=== PATIENT | female | born 1990 | race Two or more races ===

== ENCOUNTER 2018-02-08 23:44 | Inpatient (IN) | payer OTHER ==
[~2018-02-08] VITALS: Ht 162.6 cm; Wt 77.6 kg
[2018-02-09] MEDS ORDERED: PRENATAL TABLE1 EAC4 PO (01:04)
== END 2018-02-11 12:25 | disposition home or self-care (01) | DRG 775 ==
LOC: OB/GYN 23:44 → LDR 23:44 → OB/GYN 02-09 07:26
PROC: 10E0XZZ Delivery of Products of Conception, External Approach (ICD-10-PCS; principal; 2018-02-09)
PROC: 0UQMXZZ Repair Vulva, External Approach (ICD-10-PCS; 2018-02-09)
PROC: 3E033VJ Introduction of Other Hormone into Peripheral Vein, Percutaneous Approach (ICD-10-PCS; 2018-02-09)
PROC: 4A033R1 Measurement of Arterial Saturation, Peripheral, Percutaneous Approach (ICD-10-PCS; 2018-02-09)
PROC: 4A1HXCZ Monitoring of Products of Conception, Cardiac Rate, External Approach (ICD-10-PCS; 2018-02-09)
DX: O70.0 First degree perineal laceration during delivery (principal); O69.81X0 Labor and delivery complicated by cord around neck, without compression, not applicable or unspecified; O99.824 Streptococcus B carrier state complicating childbirth; Z3A.39 39 weeks gestation of pregnancy; Z37.0 Single live birth